=== PATIENT | female | born 1935 | race Caucasian/White ===

== ENCOUNTER → 2017-08-22 | Outpatient (CLI) | payer MEDICARE, BC ==
[~2017-08-22] MED LIST: AMOXICILLIN 8751 TAB PO; B-121000 MCG PO; BIAXIN 500MG T500 MG PO; BIAXIN500 MG PO; CALTRATE-600 W600 MG PO; CEFTIN500 MG PO; DIFLUCAN 100MG100 MG PO; DOXYCYCLINE 10100 MG PO; DUTOPROL 12.5 M1 TE2 PO; FLONASE NASAL S16 GM NS; LEXAPRO 10MG10 MG PO; MULTIVITAMIN FO1 CAP PO; NEXIUM 20MG20 MG PO; PHENERGAN W/CO120 M1 PO; PREDNISONE10 MG PO; PRIL40 PO; PRILOSEC 20MG20 MG PO; PRILOSEC10 MG PO; RESTASIS0.05% OP; RT ALBUTER2.5 MG/0.5 IH; SINGULAIR 110 MG/TAB PO; SINGULAIR10 MG PO; WOMEN'S DAILY1 TAB PO; ZYRTEC 10MG10 MG PO
== END ==
LOC: MC.RAD 10:56
DX: Z12.31 Encounter for screening mammogram for malignant neoplasm of breast (principal)

== ENCOUNTER → 2017-12-24 | Outpatient (CLI) | payer MEDICARE, BC | LOC: COL.VAS 10:54 | DX: I08.1 Rheumatic disorders of both mitral and tricuspid valves (principal); R05 Cough; Z98.82 Breast implant status ==

== ENCOUNTER → 2019-05-19 | Outpatient (CLI) | payer MEDICARE, BC | LOC: MC.RAD 13:39 | DX: Z12.31 Encounter for screening mammogram for malignant neoplasm of breast (principal) ==

== ENCOUNTER → 2020-05-24 | Outpatient (CLI) | payer MEDICARE, BC | LOC: MC.RAD 10:54 | DX: Z12.31 Encounter for screening mammogram for malignant neoplasm of breast (principal) ==

== ENCOUNTER 2020-11-29 13:03 | Emergency (ER) | payer MEDICARE, BC ==
[~2020-11-29] VITALS: Ht 154.9 cm; Wt 58.6 kg
[2020-11-29 13:12] VITALS: TEMP 99
[2020-11-29 15:35] VITALS: BP 125/77; PULSE 86
== END 2020-11-29 15:39 | disposition home or self-care (01) ==
LOC: COL.ER 13:03
DX: J44.9 Chronic obstructive pulmonary disease, unspecified (principal); J06.9 Acute upper respiratory infection, unspecified; K21.9 Gastro-esophageal reflux disease without esophagitis; Z20.822 Contact with and (suspected) exposure to COVID-19; Z87.891 Personal history of nicotine dependence; Z79.51 Long term (current) use of inhaled steroids; Z99.81 Dependence on supplemental oxygen; Z79.899 Other long term (current) drug therapy

== ENCOUNTER 2020-12-07 20:25 | Emergency (ER) | payer MEDICARE, BC ==
[~2020-12-07] VITALS: Ht 154.9 cm; Wt 58.2 kg
[2020-12-07 20:31] VITALS: TEMP 98.7
[2020-12-07 22:43] VITALS: BP 179/87; PULSE 73
== END 2020-12-07 22:51 | disposition home or self-care (01) ==
LOC: COL.ER 20:25
DX: S52.571A Other intraarticular fracture of lower end of right radius, initial encounter for closed fracture (principal); S00.93XA Contusion of unspecified part of head, initial encounter; W01.198A Fall on same level from slipping, tripping and stumbling with subsequent striking against other object, initial encounter; Y93.41 Activity, dancing

== ENCOUNTER 2021-04-22 07:36 | Day surgery (SDC) | payer MEDICARE, BC ==
[~2021-04-22] VITALS: Ht 154.9 cm; Wt 59.2 kg
[2021-04-22] MEDS ORDERED: BIAXIN 500MG T500 MG PO (08:25)
[2021-04-22] MEDS ORDERED: TOPROL XL 25MG25 MG PO (08:26)
[2021-04-22] MEDS ORDERED: REMERON 15M15 MG/TA1 PO (08:27)
[2021-04-22 08:28] VITALS: BP 119/91; PULSE 87; TEMP 97.3
[2021-04-22] MEDS ORDERED: PEPCID 20MG TAB20 MG PO (08:28)
--- NOTE | 2021-04-22 09:20 | NUR ---
Patient ambulates to the restroom with assistance with her IV tubing. She voids and returns to her room.
[2021-04-22 10:31] VITALS: BP 154/67; PULSE 82; TEMP 97.6
--- NOTE | 2021-04-22 10:31 | NUR ---
Patient arrives to [facility] [facility] via cart, accompanied by HAND CULTIVATOR Ellen Rosa and VISION SPECIALIST Andrey Phan. Patient is sleepy, but arouses to voice and converses with staff. She denies pain or nausea. Her incision has a clean/dry/intact bandage covering it. PIV to TKO. Monitoring is applied - VSS on 6L oxygen per mask. Mask is removed and placed on 2.5L oxygen per nasal cannula (her home O2 dose at night). Lights are dimmed for comfort. is at the bedside.
[2021-04-22 10:45] VITALS: BP 158/69; PULSE 87
--- NOTE | 2021-04-22 10:45 | NUR ---
Patient is resting comfortably in her room. VSS on oxygen. She denies pain or nausea.
[2021-04-22] MEDS ORDERED: NORCO 325 MG-51 TAB PO (10:50)
[2021-04-22 11:00] VITALS: BP 162/70; PULSE 86
--- NOTE | 2021-04-22 11:00 | NUR ---
VSS on room air. Patient denies pain or nausea. She is sitting up in bed, eating and drinking a muffin and a soda.
[2021-04-22 11:15] VITALS: BP 159/69; PULSE 70
--- NOTE | 2021-04-22 11:15 | NUR ---
Patient is tolerating food well. She denies any pain, nausea, or need at this time.
--- NOTE | 2021-04-22 11:55 | NUR ---
Patient has met discharge criteria. Discharge instructions are discussed. She denies any questions and verbalizes understanding. PIV is removed with catheter intact and hemostasis achieved. She changes to her clothing independently. She is escorted to the exit via wheelchair by staff and discharged to home with ride in private vehicle at 1155.
== END 2021-04-22 11:55 | disposition home or self-care (01) ==
LOC: SDCO 07:36
DX: K40.90 Unilateral inguinal hernia, without obstruction or gangrene, not specified as recurrent (principal); I10 Essential (primary) hypertension; J44.9 Chronic obstructive pulmonary disease, unspecified; K21.9 Gastro-esophageal reflux disease without esophagitis; K51.90 Ulcerative colitis, unspecified, without complications; M07.60 Enteropathic arthropathies, unspecified site; Z99.81 Dependence on supplemental oxygen; F32.A Depression, unspecified; Z85.3 Personal history of malignant neoplasm of breast; Z92.3 Personal history of irradiation; Z79.899 Other long term (current) drug therapy
CPT/HCPCS: J0690; J2704; J3010; J7120

== ENCOUNTER → 2021-09-14 | Outpatient (CLI) | payer MEDICARE, BC ==
[~2021-09-14] MED LIST changes: +NORCO 325 MG-51 TAB PO; +PEPCID 20MG TAB20 MG PO; +REMERON 15M15 MG/TA1 PO; +TOPROL XL 25MG25 MG PO
== END ==
LOC: MC.RAD 05-25 13:30
DX: Z12.31 Encounter for screening mammogram for malignant neoplasm of breast (principal)

== ENCOUNTER 2021-12-11 20:12 | Emergency (ER) | payer MEDICARE, BC ==
[~2021-12-11] VITALS: Ht 154.9 cm; Wt 59.1 kg
[~2021-12-11 20:12] MED LIST changes: -LEXAPRO 10MG10 MG PO; +LEXAPRO20 MG PO
[2021-12-11 20:19] VITALS: TEMP 97.3
[2021-12-11 20:50] LABS: BASO # 0.1 K/mm3 (0.0-0.2); BASO % 0.4 % (0.0-2.0); EOS % 0.2 % (0.0-4.0); GRAN # 17.4 K/mm3 (1.4-6.5); GRAN % 83.9 % (42.2-75.2); HEMOGLOBIN 11.7 g/dl (12.5-16.0); LYMPH # 2.1 K/mm3 (1.2-3.4); MEAN CELL VOLUME 95 fl (80.0-100.0); MEAN CORPUSCULAR HEMOGLOBIN 31 pg (27-31); MEAN CORPUSCULAR HGB CONC 32 g/dl (33.0-37.0); MEAN PLATELET VOLUME 9.9 fl (7.4-10.4); MONO # 0.9 K/mm3 (0.1-0.6); MONO % 4.4 % (1.7-9.3); PLATELET COUNT 451 K/mm3 (130-400); RED BLOOD COUNT 3.81 M/mm3 (4.10-5.30); REDCELL DISTRIBUTION WIDTH-CV 15.2 % (11.5-14.5)
[2021-12-11 20:55] LABS: HEMATOCRIT 36.2 % (37.0-47.0)
[2021-12-11 21:05] LABS: ALANINE AMINOTRANSFERASE 11 U/L (0-55); ALKALINE PHOSPHATASE 89 U/L (40-150); ANION GAP 14 mmol/L (7-16); AST,SGOT 15 U/L (5-34); BILIRUBIN,TOTAL 0.2 mg/dL (0.2-1.2); BLOOD UREA NITROGEN 14 mg/dL (10-20); CALCIUM 9.2 mg/dL (8.4-10.2); CARBON DIOXIDE 23 mmol/L (23-31); CHLORIDE 104 mmol/L (98-107); CREATININE, serum 0.85 mg/dL (0.57-1.11); GLUCOSE 189 mg/dL (70-99); POTASSIUM 4.5 mmol/L (3.5-4.5); SODIUM 141 mmol/L (136-145); TOTAL PROTEIN 7.5 gm/dL (6.2-8.1)
[2021-12-11 21:12] LABS: TROPONIN-I < 0.010 ng/mL (0.00-0.033)
[2021-12-11] MEDS ORDERED: AMOXICILLIN 8751 TAB PO (21:46)
[2021-12-11] MEDS ORDERED: PREDNISONE10 MG PO (21:46)
[2021-12-11 22:10] VITALS: BP 178/97; PULSE 68
== END 2021-12-11 22:12 | disposition home or self-care (01) ==
LOC: COL.ER 20:12
PROVIDERS: Personal Emergency Response Attendant
DX: J40 Bronchitis, not specified as acute or chronic (principal); J98.01 Acute bronchospasm
CPT/HCPCS: J0696; J2930

== ENCOUNTER 2021-12-14 04:36 | Emergency (ER) | payer MEDICARE, BC ==
[~2021-12-14] VITALS: Ht 154.9 cm; Wt 59.1 kg
[2021-12-14 04:47] VITALS: TEMP 98
[2021-12-14 06:19] LABS: HEMOGLOBIN 12.2 g/dl (12.5-16.0); MEAN CELL VOLUME 92 fl (80.0-100.0); MEAN CORPUSCULAR HEMOGLOBIN 30 pg (27-31); MEAN CORPUSCULAR HGB CONC 33 g/dl (33.0-37.0); PLATELET COUNT 478 K/mm3 (130-400); RED BLOOD COUNT 4.03 M/mm3 (4.10-5.30)
[2021-12-14 06:24] LABS: HEMATOCRIT 36.9 % (37.0-47.0)
[2021-12-14 06:36] LABS: ALBUMIN 3.4 gm/dL (3.4-4.8); BILIRUBIN,TOTAL 0.4 mg/dL (0.2-1.2); CALCIUM 9.2 mg/dL (8.4-10.2); CREATININE, serum 0.78 mg/dL (0.57-1.11); POTASSIUM 3.9 mmol/L (3.5-4.5); TOTAL PROTEIN 7.7 gm/dL (6.2-8.1)
[2021-12-14 06:45] LABS: BAND 4 % (0-10); HYPOCHROMIA 1+; LYMPHOCYTE 8 % (20.0-51.0); NEUTROPHILS 82 % (42.0-75.2); PLATELET ESTIMATE NORMAL (NORMAL)
[2021-12-14] MEDS ORDERED: ZOFRAN ODT4 MG PO (07:15)
[2021-12-14 07:30] VITALS: BP 217/96; PULSE 56
== END 2021-12-14 07:42 | disposition home or self-care (01) ==
LOC: COL.ER 04:36
PROVIDERS: Emergency Medicine Emergency Medical Services
DX: K29.00 Acute gastritis without bleeding (principal); T50.905A Adverse effect of unspecified drugs, medicaments and biological substances, initial encounter; Z20.822 Contact with and (suspected) exposure to COVID-19
CPT/HCPCS: J2270; J2405; J7030

== ENCOUNTER → 2023-04-25 | Outpatient (CLI) | payer MEDICARE, BC ==
[~2023-04-25] MED LIST changes: +ZOFRAN ODT4 MG PO
== END ==
LOC: CANPRECLI → MC.RAD 02-22 11:45
DX: Z12.31 Encounter for screening mammogram for malignant neoplasm of breast (principal)

== ENCOUNTER → 2023-10-25 | Outpatient (CLI) | payer MEDICARE | LOC: MC.RAD 14:30 | DX: Z85.3 Personal history of malignant neoplasm of breast (principal) ==